=== PATIENT | male | born 1995 | race Two or more races ===

== ENCOUNTER 2017-03-15 13:02 | Emergency (ER) | payer OTHER ==
[~2017-03-15] VITALS: Ht 172.7 cm; Wt 79.8 kg
[2017-03-15 13:15] VITALS: BP 120/76
[2017-03-15] MEDS ORDERED: DIPHTH,PERTUSS(ACELL),TET TOX 0.5 ML DISP.SYRIN. VAX IM ONE (13:30)
[2017-03-15] MEDS ORDERED: HYDROcodone/APAP 5/325MG 1 TAB TABLET PO ONE (13:45)
--- NOTE | 2017-03-15 14:13 | PHYS DOC ---
Past Medical History Past Medical History: No Pertinent History Past Surgical History: No Surgical History Alcohol Use: None Drug Use: None Adult General Chief Complaint Chief Complaint: LACERATION/AVULSION HPI HPI Patient is a 21 year old male who presents with left FA laceration that began yesterday when he accidentally cut himself opening a bag. Review of Systems Review of Systems Constitutional: Denies fever or chills [] Musculoskeletal: Denies back pain or joint pain [] Integument: left FA laceration Neurologic: Denies headache, focal weakness or sensory changes [] All other systems were reviewed and found to be within normal limits, except as documented in this note. Current Medications Current Medications Current Medications Medications (Trade) Dose Ordered Sig/Masoud Start Time Stop Time Status Last Admin Dose Admin Acetaminophen/ Hydrocodone Bitart (Lortab 5/325) 2 tab 1X ONCE 03/15/17 13:45 03/15/17 13:46 DC 03/15/17 13:47 2 TAB Bacitracin/ Polymyxin B Sulfate (Polysporin) 1 angela BID 03/15/17 21:00 Diphtheria/ Tetanus/Acell Pertussis (Boostrix) 0.5 ml ONCE ONCE 03/15/17 13:30 03/15/17 13:32 DC 03/15/17 13:47 0.5 ML Allergies Allergies Allergies Coded Allergies Type Severity Reaction Last Updated Verified No Known Drug Allergies 09/04/14 No Physical Exam Physical Exam Constitutional: Well developed, well nourished, no acute distress, non-toxic appearance. [] Skin: Warm, dry, left lateral forearm with a laceration approximately 2 cm long , there is no tendon involvement. Neurovascular exam is intact to the left forearm. +2 left radial pulse. Cap refill less than 2 seconds the left fingers. Back: No tenderness, no CVA tenderness. [] Extremities: No tenderness, no cyanosis, no clubbing, ROM intact, no edema. [] Neurologic: Alert and oriented X 3, normal motor function, normal sensory function, no focal deficits noted. [] Psychologic: Affect normal, judgement normal, mood normal. [] Current Patient Data Vital Signs Vital Signs Date Time Temp Pulse Resp B/P (MAP) Pulse Ox O2 Delivery O2 Flow Rate FiO2 03/15/17 13:15 97.9 94 18 98 Room Air 97.9 EKG EKG [] Radiology/Procedures Radiology/Procedures [] Course & Med Decision Making Course & Med Decision Making Pertinent Labs and Imaging studies reviewed. (See chart for details) Patient is in the ED with left forearm laceration that happened yesterday. Tetanus updated. Provided wound care instructions as well as return precautions. Dragon Disclaimer Dragon Disclaimer This electronic medical record was generated, in whole or in part, using a voice recognition dictation system. Departure Departure Impression: Primary Impression: Forearm laceration Disposition: HOME, SELF-CARE Condition: STABLE Referrals: ARUNA DOMINGUEZ MD (PCP) follow up with your doctor in 1 week as needed Patient Instructions: Laceration Care, Adult Additional Instructions: You were seen for left forearm laceration that occurred yesterday. You can shower keep the area clean and dry. Apply Neosporin to the area twice a day. Monitor the area for signs and symptoms of infection including but not limited to increased redness to the area, yellow drainage from the area, warmth to the area and return to the ED or see your doctor if they occur Problem Qualifiers Primary Impression: Forearm laceration Encounter type: initial encounter Laterality: left Qualified Codes: S51.812A - Laceration without foreign body of left forearm, initial encounter GRADY MEJIA APRN Mar 15, 2017 14:13
[2017-03-15] MEDS ORDERED: BACITRACIN/POLYMYXIN B TOPICAL OINT 15GM TUBE. TP SCH (21:00)
== END 2017-03-15 14:38 | disposition home or self-care (01) ==
LOC: ER 13:02
DX: S51.812A Laceration without foreign body of left forearm, initial encounter (principal); Y28.8XXA Contact with other sharp object, undetermined intent, initial encounter; Y93.89 Activity, other specified; Y99.8 Other external cause status; Y92.89 Other specified places as the place of occurrence of the external cause
CPT/HCPCS: 90471; 90715; 99283-25

== ENCOUNTER 2017-05-11 04:13 | Emergency (ER) | payer OTHER | END 2017-05-11 05:03 | disposition home or self-care (01) | LOC: ER 04:13 | DX: S61.217A Laceration without foreign body of left little finger without damage to nail, initial encounter (principal); W26.0XXA Contact with knife, initial encounter; Y93.89 Activity, other specified; Y99.8 Other external cause status; Y92.89 Other specified places as the place of occurrence of the external cause | CPT/HCPCS: 12001; 99283-25 ==

== ENCOUNTER 2020-01-19 06:06 | Emergency (ER) | payer SELFPAY ==
[~2020-01-19] VITALS: Ht 170.2 cm; Wt 86.0 kg
[2020-01-19 06:20] VITALS: BP 142/61
[2020-01-19] MEDS ORDERED: AMOX500C PO (06:37)
--- NOTE | 2020-01-19 12:24 | ED.ADGEN ---
Past Medical History Past Medical History: No Pertinent History Additional Past Medical Histor: psoriasis Past Surgical History: No Surgical History Additional Past Surgical Histo: wisdom teeth 02/2017 Smoking Status: Current Every Day Smoker Alcohol Use: None Drug Use: None General Adult EDM: Chief Complaint: EARACHE/EAR PAIN HPI: HPI: Patient is 24-year-old male who presents to the emergency room complaining of right ear pain. Patient states that initially it felt like a pressure yesterday. He put some drops in it but it only seemed to make it worse. He then used a Q-tip to try to get the drops out. He states the pain has progressively gotten worse. He then used some hydrogen peroxide to try to help which did not help and only made his pain worse. Now he is having sharp pains in his ear. He denies any drainage from the ear. Review of Systems: Review of Systems: General: Denies fever, chills, sweats, fatigue Eyes: Denies drainage, blurred vision, eye redness HENT: Denies rhinorrhea, sore throat. Reports earache Respiratory: Denies cough, shortness of breath, wheezing Cardiac: Denies edema, palpitations, chest pain GI: Denies abdominal pain, Nausea, vomiting MSK: Denies back pain, neck pain Skin: Denies rash, jaundice Neuro: Denies headache, dizziness Psychiatric: Denies SI/HI Allergies: Allergies: Allergies Coded Allergies Type Severity Reaction Last Updated Verified No Known Drug Allergies 09/04/14 No Physical Exam: PE: General: Awake, alert, NAD. Well Nourished, well hydrated. Cooperative HEENT: Atraumatic, EOMI, PERRL, airway patent, moist oral mucosa, right TM: Perforated with surrounding erythema, no drainage Neck: Supple, trachea midline Respiratory: CTA bilaterally, normal effort, no wheezing/crackles CV: RRR, no murmur, cap refill <2 GI: Soft, nondistended, nontender, no masses MSK: No obvious deformities Skin: Warm, dry, intact Neuro: A&O x3, speech NL, sensory and motor grossly intact, no focal deficits Psych: Normal affect, normal mood, not suicidal or homicidal Current Patient Data: Vital Signs: Vital Signs Date Time Temp Pulse Resp B/P (MAP) Pulse Ox O2 Delivery O2 Flow Rate FiO2 01/19/20 06:20 98.4 98 20 142/61 (88) 97 Room Air 98.4 EKG: EKG: [] Heart Score: Risk Factors: Risk Factors: DM, Current or recent (<one month) smoker, HTN, HLP, family history of CAD, obesity. Risk Scores: Score 0 - 3: 2.5% MACE over next 6 weeks - Discharge Home Score 4 - 6: 20.3% MACE over next 6 weeks - Admit for Clinical Observation Score 7 - 10: 72.7% MACE over next 6 weeks - Early Invasive Strategies Radiology/Procedures: Radiology/Procedures: [] Course & Med Decision Making: Course & Med Decision Making Pertinent Labs and Imaging studies reviewed. (See chart for details) Patient is 24-year-old male who presents to the emergency room with right ear pain. Patient has a perforated eardrum. We discussed that he should not put anything further in his ear. Patient is unable to afford Ciprodex drops. We will place him on amoxicillin. I have discussed with him that he needs to follow-up with ENT. Patient's test results and vitals while in the ED were fully reviewed and discussed with the patient. Patient is stable and at this time does not need admission to the hospital. We have discussed strict return precautions and the importance of following up with their Primary Care Physician. Patient stated understanding and was given an opportunity to ask any questions. Patient is in agreement with plan. Dalia Disclaimer: Dalia Disclaimer: This electronic medical record was generated, in whole or in part, using a voice recognition dictation system. Departure Departure Impression: Primary Impression: Rupture of tympanic membrane due to otitis media Disposition: 01 DC HOME SELF CARE/HOMELESS Condition: STABLE Patient Instructions: Eardrum Perforation, [id number] Scripts Amoxicillin (AMOXICILLIN) 500 Mg Capsule 1 CAP PO Q8HRS for infection for 7 Days, #21 CAP Prov: NERI UPTON MD 01/19/20 NERI UPTON MD Jan 19, 2020 12:24
== END 2020-01-19 07:00 | disposition home or self-care (01) ==
LOC: ER 06:06
DX: H72.91 Unspecified perforation of tympanic membrane, right ear (principal); L40.9 Psoriasis, unspecified; F17.200 Nicotine dependence, unspecified, uncomplicated; L53.9 Erythematous condition, unspecified
CPT/HCPCS: 99283